=== PATIENT | male | born 2000 | race Caucasian/White ===

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

== ENCOUNTER 2022-09-17 09:03 | Emergency (ER) | payer OTHER, MEDICAID ==
--- NOTE | 2022-09-17 09:12 | ERPHSYRPT ---
- History of Present Illness Time Seen by Provider: 09/17/22 09:12 Historian: patient Exam Limitations: no limitations Physician History: This is a 21-year-old white male patient of Dr. Wilhelm who states he did drink alcohol last evening who presents with bright red blood in his stool this morning. He has had this 1 other time per his report. He has no bleeding or c lotting disorders. He denies any kind of instrumentation or sexual acts anorectally, he denies history of hemorrhoids in the past. He has no abdominal pain. He has no perianal or anal rectal pain. There is no pain with bowel movements. He is not on any medication. He has no known drug allergies. Timing/Duration: today Activities at Onset: other (Having a bowel movement) Quality: other (No pain) Abdominal Pain Onset Location: other (No pain) Pain Radiation: no radiation Severity of Pain-Max: none Severity of Pain-Current: none Modifying Factors: Improves With: nothing Associated Symptoms: denies symptoms Previous symptoms: same symptoms as today (1 other time in the past) Allergies/Adverse Reactions: No Known Drug Allergies Allergy (Verified 09/17/22 09:24) Home Medications: No Home Meds [No Home Meds] 1 ea [facility] 06/12/16 [History] Hx Tetanus, Diphtheria Vaccination/Date Given: Yes Hx Influenza Vaccination/Date Given: No Hx Pneumococcal Vaccination/Date Given: No Travel Risk - International Travel Have you traveled outside of the country in past 3 weeks: No - Coronavirus Screening Are you exhibiting any of the following symptoms?: No Close contact with a COVID-19 positive Pt in past 14-21 Days: No - Review of Systems Constitutional: No Symptoms Eyes: No Symptoms Ears, Nose, & Throat: No Symptoms Respiratory: No Symptoms Cardiac: No Symptoms Abdominal/Gastrointestinal: No Symptoms, Hematochezia Genitourinary Symptoms: No Symptoms Musculoskeletal: No Symptoms Skin: No Symptoms Neurological: No Symptoms Psychological: No Symptoms Endocrine: No Symptoms Hematologic/Lymphatic: No Symptoms Immunological/Allergic: No Symptoms All Other Systems: Reviewed and Negative - Past Medical History Pertinent Past Medical History: No Neurological History: No Pertinent History ENT History: No Pertinent History Cardiac History: Other Respiratory History: No Pertinent History Endocrine Medical History: No Pertinent History Musculoskeletal History: No Pertinent History GI Medical History: No Pertinent History History: No Pertinent History Psycho-Social History: No Pertinent History Male Reproductive Disorders: No Pertinent History - Past Surgical History Past Surgical History: No Neuro Surgical History: No Pertinent History Cardiac: No Pertinent History Respiratory: No Pertinent History Gastrointestinal: No Pertinent History Genitourinary: No Pertinent History Musculoskeletal: No Pertinent History Male Surgical History: Testicular Surgery Other Surgical History: TESTICULAR DROP SURGERY IN EARLY CHILD [place] - Social History Smoking Status: Never smoker Exposure to second hand smoke: No Drug Use: none Patient Lives Alone: No - Nursing Vital Signs Nursing Vital Signs: Initial Vital Signs Temperature 97.8 F 09/17/22 09:16 Pulse Rate 85 09/17/22 09:16 Blood Pressure 132/88 09/17/22 09:16 O2 Sat by Pulse Oximetry 99 09/17/22 09:16 Pain Scale Pain Intensity 0 - Physical Exam General Appearance: no apparent distress, alert, anxiety Eye Exam: PERRL/EOMI, eyes nml inspection Ears, Nose, Throat Exam: normal ENT inspection, moist mucous membranes Neck Exam: normal inspection, non-tender, supple, full range of motion Respiratory Exam: normal breath sounds, lungs clear, No chest tenderness, No respiratory distress Cardiovascular Exam: regular rate/rhythm, normal heart sounds, normal peripheral pulses Gastrointestinal/Abdomen Exam: soft, normal bowel sounds, No tenderness Rectal Exam: other (No visible external hemorrhoids. No active bleeding from the anus) Back Exam: normal inspection, normal range of motion, No CVA tenderness, No vertebral tenderness Extremity Exam: normal inspection, normal range of motion, pelvis stable Neurologic Exam: alert, oriented x 3, cooperative, skiver uppers or linings II-XII nml as tested, normal mood/affect, nml cerebellar function, nml station & gait, sensation nml Skin Exam: normal color, warm, dry Lymphatic Exam: No adenopathy SpO2 Interpretation: normal O2 Delivery: Room Air - Course Nursing assessment & vital signs reviewed: Yes Ordered Tests: Active Orders 24 hr Category Date Time Status IV Insertion STAT Care 09/17/22 09:22 Active ABDOMEN AND PELVIS W/0 CONTRAS [CT] Stat Exams 09/17/22 10:16 Completed AMYLASE Stat Lab 09/17/22 10:11 Completed CBC W DIFF Stat Lab 09/17/22 10:11 Completed CMP Stat Lab 09/17/22 10:11 Completed LIPASE Stat Lab 09/17/22 10:11 Completed PROTIME WITH INR Stat Lab 09/17/22 10:11 Completed UA W/RFX UR CULTURE Stat Lab 09/17/22 09:24 Completed Lab/Rad Data: Laboratory Result Diagrams 09/17/22 10:11 09/17/22 10:11 Laboratory Results 09/17/22 09/17/22 09/17/22 Range/Units 10:11 10:11 10:11 WBC 5.4 (4.0-10.5) x10^3/uL RBC 4.74 (4.1-5.6) x10^6/uL Hgb 14.0 (12.5-18.0) g/dL Hct 42.4 (42-50) % MCV 89.5 (78-100) fL MCH 29.5 (26-32) pg MCHC 33.0 (32-36) g/dL RDW 11.8 (11.5-14.0) % Plt Count 197 (150-450) x10^3/uL MPV 9.2 (7.5-11.0) fL Gran % 51.4 (36.0-66.0) % Immature Gran % (Auto) 0.4 (0.00-0.4) % Nucleat RBC Rel Count 0.0 (0.00-0.1) % Eos # (Auto) 0.07 (0-0.5) x10^3/uL Immature Gran # (Auto) 0.02 (0.00-0.03) x10^3u/L Absolute Lymphs (auto) 2.10 (1.0-4.6) x10^3/uL Absolute Monos (auto) 0.41 (0.0-1.3) x10^3/uL Absolute Nucleated RBC 0.00 (0.00-0.01) x10^3u/L Lymphocytes % 38.9 (24.0-44.0) % Monocytes % 7.6 (0.0-12.0) % Eosinophils % 1.3 (0.00-5.0) % Basophils % 0.4 (0.0-0.4) % Absolute Granulocytes 2.78 (1.4-6.9) x10^3/uL Basophils # 0.02 (0-0.4) x10^3/uL PT 9.7 (9.4-12.5) SECONDS INR 0.88 (0.8-3.0) Sodium 141 (137-145) mmol/L Potassium 4.0 (3.5-5.1) mmol/L Chloride 106 (98-107) mmol/L Carbon Dioxide 25 (22-30) mmol/L Anion Gap 13.9 (5-15) MEQ/L BUN 15 (9-20) mg/dL Creatinine 0.67 (0.66-1.25) mg/dL Estimated GFR > 60.0 ML/MIN Glucose 100 (74-106) mg/dL Calcium 9.3 (8.4-10.2) mg/dL Total Bilirubin 0.40 (0.2-1.3) mg/dL AST 29 (17-59) U/L ALT 23 (0-50) U/L Alkaline Phosphatase 94 (38-126) U/L Serum Total Protein 7.3 (6.3-8.2) g/dL Albumin 4.3 (3.5-5.0) g/dL Amylase 61 (30-110) U/L Lipase 79 (23-300) U/L Urine Color (Yellow) Urine Appearance (Clear) Urine pH (4.6-8.0) Ur Specific [place] (1.005-1.030) Urine Protein (Negative) Urine Glucose (UA) (Negative) mg/dL Urine Ketones (Negative) Urine Blood (Negative) Urine Nitrite (Negative) Urine Bilirubin (Negative) Urine Urobilinogen (0.2) mg/dL Ur Leukocyte Esterase (Negative) U Hyaline Cast (Auto) (0-2) /LPF Urine Microscopic RBC (0-5) /HPF Urine Microscopic WBC (0-5) /HPF Ur Epithelial Cells (None Seen) /HPF Urine Bacteria (None Seen) /HPF Urine Culture Reflexed (NO) 09/17/22 Range/Units 09:24 WBC (4.0-10.5) x10^3/uL RBC (4.1-5.6) x10^6/uL Hgb (12.5-18.0) g/dL Hct (42-50) % MCV (78-100) fL MCH (26-32) pg MCHC (32-36) g/dL RDW (11.5-14.0) % Plt Count (150-450) x10^3/uL MPV (7.5-11.0) fL Gran % (36.0-66.0) % Immature Gran % (Auto) (0.00-0.4) % Nucleat RBC Rel Count (0.00-0.1) % Eos # (Auto) (0-0.5) x10^3/uL Immature Gran # (Auto) (0.00-0.03) x10^3u/L Absolute Lymphs (auto) (1.0-4.6) x10^3/uL Absolute Monos (auto) (0.0-1.3) x10^3/uL Absolute Nucleated RBC (0.00-0.01) x10^3u/L Lymphocytes % (24.0-44.0) % Monocytes % (0.0-12.0) % Eosinophils % (0.00-5.0) % Basophils % (0.0-0.4) % Absolute Granulocytes (1.4-6.9) x10^3/uL Basophils # (0-0.4) x10^3/uL PT (9.4-12.5) SECONDS INR (0.8-3.0) Sodium (137-145) mmol/L Potassium (3.5-5.1) mmol/L Chloride (98-107) mmol/L Carbon Dioxide (22-30) mmol/L Anion Gap (5-15) MEQ/L BUN (9-20) mg/dL Creatinine (0.66-1.25) mg/dL Estimated GFR ML/MIN Glucose (74-106) mg/dL Calcium (8.4-10.2) mg/dL Total Bilirubin (0.2-1.3) mg/dL AST (17-59) U/L ALT (0-50) U/L Alkaline Phosphatase (38-126) U/L Serum Total Protein (6.3-8.2) g/dL Albumin (3.5-5.0) g/dL Amylase (30-110) U/L Lipase (23-300) U/L Urine Color Yellow (Yellow) Urine Appearance Clear (Clear) Urine pH 5.5 (4.6-8.0) Ur Specific [place] 1.020 (1.005-1.030) Urine Protein Negative (Negative) Urine Glucose (UA) Negative (Negative) mg/dL Urine Ketones Negative (Negative) Urine Blood Negative (Negative) Urine Nitrite Negative (Negative) Urine Bilirubin Negative (Negative) Urine Urobilinogen 0.2 (0.2) mg/dL Ur Leukocyte Esterase Negative (Negative) U Hyaline Cast (Auto) NONE SEEN (0-2) /LPF Urine Microscopic RBC 0-2 (0-5) /HPF Urine Microscopic WBC 0-2 (0-5) /HPF Ur Epithelial Cells None Seen (None Seen) /HPF Urine Bacteria None Seen (None Seen) /HPF Urine Culture Reflexed NO (NO) - Progress Progress: improved, re-examined Progress Note: 09/17/22 09:43 This patient's medical issue is 1 of moderate complexity. Level complexity in the work-up performed is based on review of the patient's past medical history, review of the patient's medication list, review of the patient's drug allergy list, history of present illness and physical findings on examination. This patient's medical work-up includes placement of an intravenous line, CBC, CMP, PT/INR, amylase, lipase, urinalysis, CT scan of the abdomen pelvis without contrast. We will follow-up on the results of the work-up and determine the next step in this patient's management. 09/17/22 11:15 CT scan of the abdomen pelvis was interpreted by the radiologist. There is no evidence of any significant abnormality in the abdomen or pelvis on the study. Counseled pt/family regarding: lab results, diagnosis, need for follow-up, rad results Medical Desision Making - Diagnostic Testing Diagnostic test were ordered, analyzed, and reviewed by me: Yes Radiological Interpretation: Reviewed by me, Teleradiologist Report - Risk of complications Minimal Risk: Minimal risk of morbidity - Departure Departure Disposition: Home Clinical Impression: Bright red blood per rectum Condition: Stable Critical Care Time: No Referrals: NAVEEN WILHELM [Primary Care Provider] - Follow up/PCP as directed Additional Instructions: Drink plenty of fluids. Call your primary care provider tomorrow, 09/18/2022, to make arrangements for further evaluation and management including referral for colonoscopy if indicated.
[2022-09-17 09:26] VITALS: BP 132/88; PULSE 85; TEMP 97.8; O2SAT 99
[2022-09-17 09:34] LABS: Appearance Clear (Clear); Bacteria None Seen /HPF (None Seen); Bilirubin Negative (Negative); Blood Negative (Negative); Epithelial Cells None Seen /HPF (None Seen); Glucose, Urine Negative (Negative); Hyaline Casts NONE SEEN /LPF (0-2); Ketones Negative (Negative); Leukocyte Esterase Negative (Negative); Nitrite Negative (Negative); Ph 5.5 (4.6-8.0); Protein,Urine Dip Negative (Negative); RBC 0-2 /HPF (0-5); Urobilinogen 0.2 mg/dL (0.2); WBC 0-2 /HPF (0-5)
[2022-09-17 09:38] LABS: ADD URINE CULTURE? NO (NO)
[2022-09-17 10:13] LABS: Absolute Neutrophil Ct (ANC) 2.78 x10^3/uL (1.4-6.9); BASOPHIL % 0.4 % (0.0-0.4); Basophil (Absolute #) 0.02 x10^3/uL (0-0.4); Eosinophil % 1.3 % (0.00-5.0); Eosinophil (Absolute #) 0.07 x10^3/uL (0-0.5); Hematocrit 42.4 % (42-50); IMMATURE GRAN # 0.02 x10^3u/L (0.00-0.03); IMMATURE GRAN % 0.4 % (0.00-0.4); Lymphocytes % 38.9 % (24.0-44.0); Mean Cell Volume 89.5 fL (78-100); Mean Corpuscular Hemoglobin 29.5 pg (26-32); Mean Platelet Volume 9.2 fL (7.5-11.0); Monocyte (Absolute #) 0.41 x10^3/uL (0.0-1.3); Monocytes % 7.6 % (0.0-12.0); Neutrophil % 51.4 % (36.0-66.0); Platelet Count 197 x10^3/uL (150-450); Red Blood Count 4.74 x10^6/uL (4.1-5.6); Red Cell Distribution Width 11.8 % (11.5-14.0); White Blood Count 5.4 x10^3/uL (4.0-10.5)
[2022-09-17 10:31] LABS: ALBUMIN 4.3 g/dL (3.5-5.0); ALKALINE PHOSPHATASE 94 U/L (38-126); AMYLASE 61 U/L (30-110); ANION GAP 13.9 MEQ/L (5-15); BLOOD UREA NITROGEN 15 mg/dL (9-20); CHLORIDE 106 mmol/L (98-107); Calcium 9.3 mg/dL (8.4-10.2); Carbon Dioxide 25 mmol/L (22-30); Creatinine 1 0.67 mg/dL (0.66-1.25); EST GLOMERULAR FILTRATION RATE > 60.0 ML/MIN; Glucose 100 mg/dL (74-106); INR 0.88 (0.8-3.0); LIPASE 79 U/L (23-300); PROTIME 9.7 SECONDS (9.4-12.5); SGOT/AST 29 U/L (17-59); SGPT/ALT 23 U/L (0-50); SODIUM 141 mmol/L (137-145); Total Protein 7.3 g/dL (6.3-8.2)
--- NOTE | 2022-09-17 10:59 | XRAY ---
CLINICAL HISTORY:Bright red blood in stool COMPARISON:None. TECHNIQUE:CT scan of the abdomen and pelvis was performed without IV contrast. Coronal and sagittal reconstructions were also obtained. FINDINGS: Liver is normal size and shape and with regular margins. No focal or diffuse parenchymal abnormality. No hepatic mass is identified. The portal vein, intrahepatic biliary radicals, and the bile ducts are normal. Gall bladder appears normal with wall thickness. No radio opaque calculus or pericholecystic fluid is identified. Common bile duct appears normal. Pancreas appears normal. No peripancreatic fat stranding, pancreatic pseudocyst or peripancreatic fluid collection. Spleen normal in size, no mass seen. Both adrenal glands are unremarkable. Both kidneys are normal in size, shape and orientation. No calculi, cyst mass, or hydronephrosis is seen on either side. Both ureters and urinary bladder appear normal. Visualized small and large bowel appears unremarkable. No evidence of significant enlargement of the mesenteric or retroperitoneal lymph nodes. Visualized thoracic and lumbar spine appear normal. Few end plate sclerotic changes are seen. IMPRESSION: No significant abnormality is seen in CT scan abdomen and pelvis without contrast. Electronically Signed by: Ravindra Domingo MD. (09/17/2022 09:57:43 [employer])
== END 2022-09-17 12:11 | disposition home or self-care (01) ==
LOC: ED 09:03
DX: K62.5 Hemorrhage of anus and rectum (principal)
CPT/HCPCS: 36415; 74176; 80053; 81001; 82150; 83690; 85025; 85610; 99283

== ENCOUNTER 2022-10-30 06:01 | Day surgery (SDC) | payer OTHER, MEDICAID ==
[2022-10-30] MEDS ORDERED: Lactated Ringers 1,000 ML IV SCH (06:30)
[2022-10-30 06:39] VITALS: RESP 16
[2022-10-30] MEDS ORDERED: Versed 2 MG/2 ML Injection ONE (07:51)
[2022-10-30] MEDS ORDERED: DIPRIVAN 200 MG/20 ML IV ONE ×2 (07:51→08:02)
[2022-10-30] MEDS ORDERED: Xylocaine-Mpf 2% 5 Ml Vial ONE (07:51)
[2022-10-30] MEDS ORDERED: Lactated Ringers 1,000 ML IV ONE (08:05)
[2022-10-30 08:49] VITALS: BP 136/96; PULSE 84; TEMP 97.9; O2SAT 96
--- NOTE | 2022-10-31 08:40 | OP ---
SURGERY DATE/TIME: 10/30/2022 PREOPERATIVE DIAGNOSIS: Rectal bleeding and abdominal pain. POSTOPERATIVE DIAGNOSIS: Normal colon. PROCEDURE: Colonoscopy. SURGEON: Dr. Wilhelm. ANESTHESIA: Medications given by anesthesia department. HISTORY: The patient is a 22-year-old white male patient who presents with complaints of rectal bleeding approximately a month ago for four days. Since that time the patient reports intermittent left upper quadrant abdominal pain. He had a CT scan in the emergency room that was essentially normal but due to the patient's symptoms the patient was felt to need to have endoscopic evaluation. He was appraised of the risks of the procedure including the risk of perforation, phlebitis, untoward reaction to medication, bleeding and missed lesions. The patient verbalized his understanding and desired to have the procedure performed. DESCRIPTION OF PROCEDURE: The patient was given the medications by the anesthesia department. He had continuous pulse oximetry, ECG monitoring and intermittent blood pressure monitoring during the examination. He was placed in the left lateral decubitus position. A digital rectal examination was performed and revealed normal anal sphincter tone and no masses. The flexible Olympus pediatric colonoscope was used to intubate the rectum. A view of the colon was developed sequentially to the cecum including a short distance in the terminal ileum. Upon insertion and withdrawal, including a retroflex view in the rectum, no mucosal lesions were encountered. The scope was removed from the patient who tolerated the procedure well and was sent back to OP recovery in good condition. The prep was noted to be good.
== END 2022-10-30 09:00 | disposition home or self-care (01) ==
LOC: SDC 06:01
PROVIDERS: ATTEND Family Medicine
DX: K92.1 Melena (principal); R10.9 Unspecified abdominal pain
CPT/HCPCS: J2250; J2704